=== PATIENT | male | born 1965 | race African-American/Black ===

== ENCOUNTER 2019-09-10 10:51 | Inpatient (IN) | payer OTHER ==
[2019-09-10 12:37] VITALS: BMI 26.3
--- NOTE | 2019-09-10 13:13 | HP ---
COWS - Scale Resting Pulse: 1= [place] 81-100 Sweatin= Chills/Flushing Restless Observation: 1= Difficult to Sit Still Pupil Size: 1= Pupils >than Normal Bone or Joint Aches: 4=Acute Joint/Muscle Pain Runny Nose/ Eye Tearin= Nasal Congestion GI Upset > 30mins: 0= None Tremor Observation: 1= Tremor [place], Not Seen Yawning Observation: 1= 1-2x During Session Anxiety or Irritability: 1=Feels Anxious/Irritable Goose Flesh Skin: 0=Smooth Skin COWS Score: 12 CIWA Score - Admission Criteria OASAS Guidelines: Admission for Medically Managed Detox: Requires at least one of the followin. CIWA greater than 12 2. Seizures within the past 24 hours 3. Delirium tremens within the past 24 hours 4. Hallucinations within the past 24 hours 5. Acute intervention needed for co occurring medical disorder 6. Acute intervention needed for co occurring psychiatric disorder 7. Severe withdrawal that cannot be handled at a lower level of care (continued vomiting, continued diarrhea, abnormal vital signs) requiring intravenous medication and/or fluids 8. Admission ROS [facility] Chief Complaint: " I want to stop using heroin." Allergies/Adverse Reactions: Allergies Allergy/AdvReac Type Severity Reaction Status Date / Time shellfish derived AdvReac Swelling Verified 09/10/19 12:19 History of Present Illness: 54 year old male with history of opioid dependence with withdrawal. His problem started with his self-medication due to back pain from Degenerative Disc Disease. Over time he has been using more and more oral opioids and then switched to heroin. When he can't find the oral opioids to buy on the streets he gets heroin. He is using up to 5 bags of heroin daily, approximately, last used this morning. Percocet and oxycontin he uses when he can find them. He smokes ciggarettes 5 -12 per day, since the age of [age] years old off and on. PMH: DDD, Shoulder problem unknown, asthma as a child Psurg: None Psych: None Med: None All: Shellfish He is homeless in alf system, just now got a room in a residence He has family that supports him. He was incarcerated and just released on May 22, 2019. Exam Limitations: No Limitations - Ebola screening Have you traveled outside of the country in the last 21 days: No Have you had contact with anyone from an Ebola affected area: No Have you been sick,other than usual withdrawal symptoms: No Do you have a fever: No - Review of Systems Constitutional: Chills EENT: reports: No Symptoms Reported Respiratory: reports: No Symptoms reported Cardiac: reports: No Symptoms Reported GI: reports: Nausea, Abdominal cramping : reports: No Symptoms Reported Musculoskeletal: reports: Back Pain, Joint Pain, Muscle Pain Integumentary: reports: No Symptoms Reported Neuro: reports: No Symptoms reported Endocrine: reports: No Symptoms Reported Hematology: reports: No Symptoms Reported Psychiatric: reports: Judgement Intact, Mood/Affect Appropiate, Orientated x3 Other Systems: Reviewed and Negative Patient History - Patient Medical History Hx Anemia: No Hx Asthma: Yes (as a child) Hx Chronic Obstructive Pulmonary Disease (COPD): No Hx Cancer: No Hx Cardiac Disorders: No Hx Congestive Heart Failure: No Hx Hypertension: No Hx Hypercholesterolemia: No Hx Pacemaker: No HX Cerebrovascular Accident: No Hx Seizures: No Hx Dementia: No Hx Diabetes: Yes (pre-diabetic) Hx Gastrointestinal Disorders: No Hx Liver Disease: No Hx Genitourinary Disorders: No Hx Sexually Transmitted Disorders: No Hx Renal Disease (ESRD): No Hx Thyroid Disease: No Hx Human Immunodeficiency Virus (HIV): No (last tested 2015) Hx Hepatitis C: No (last tested 2015) Hx Depression: No Hx Suicide Attempt: No Hx Bipolar Disorder: No Hx Schizophrenia: No - Patient Surgical History Past Surgical History: No - PPD History Previous Implant?: Yes Documented Results: Negative w/o proof Implanted On Prior R Admission?: Yes Date: 05/15/19 ([facility]) Results: negative PPD to be Administered?: Yes - Smoking Cessation Smoking history: Current every day smoker Have you smoked in the past 12 months: Yes Aproximately how many cigarettes per day: 10 Hx Chewing Tobacco Use: No Initiated information on smoking cessation: Yes 'Breaking Loose' booklet given: 09/10/19 - Substances abused Heroin Substance route: Inhalation Frequency: Daily Amount used: more than a bags/not sure Age of first use: 21 Date of last use: 09/09/19 Other Other (specify): Percocet Substance route: Inhalation Frequency: Daily Amount used: it depends' got it from my friends'. Age of first use: 53 Date of last use: 09/08/19 Oxycontin Substance route: Oral Frequency: 3-6 times per week Amount used: ' when I get them', Age of first use: 53 Date of last use: 09/08/[address] [facility] - Vital Signs Vital Signs: Vital Signs - 24 hr 09/10/19 09/10/19 12:18 13:01 Temperature 98.1 F 98.1 F Pulse Rate 64 64 Respiratory 16 16 Rate Blood Pressure 118/72 118/72 - Physical General Appearance: Yes: Moderate Distress HEENTM: Yes: EOMI, Hearing grossly Normal, Normal ENT Inspection, Normocephalic , Normal Voice, LUIS F, Pharynx Normal, Tm's normal Respiratory: Yes: Chest Non-Tender, Lungs Clear, Normal Breath Sounds, No Respiratory Distress, No Accessory Muscle Use Neck: Yes: No masses,lesions,Nodules, Supple, Trachea in good position Breast: Yes: Within Normal Limits Cardiology: Yes: Regular Rhythm, Regular Rate, S1, S2 Abdominal: Yes: Normal Bowel Sounds, Non Tender, Flat, Soft Genitourinary: Yes: Within Normal Limits (testicular mass above right testicle) , Other Back: Yes: Normal Inspection Musculoskeletal: Yes: full range of Motion, Gait Steady, Pelvis Stable Extremities: Yes: Normal Capillary Refill, Normal Inspection, Normal Range of Motion, Non-Tender Neurological: Yes: lead mechanical engineer II-XII NML intact, Fully Oriented, Alert, Motor Strength 5/5, Normal Mood/Affect, Normal Response Integumentary: Yes: Normal Color, Warm Lymphatic: Yes: Within Normal Limits - Diagnostic (1) Opioid dependence with withdrawal Current Visit: Yes Status: Acute (2) Disc disease, degenerative, lumbar or lumbosacral Current Visit: Yes Status: Acute (3) Asthma Current Visit: Yes Status: Acute (4) Hydrocele, right Current Visit: Yes Status: Acute Cleared for Admission [facility] - Detox or Rehab [facility] Level of Care: Medically Managed Detox Regimen/Protocol: Methadone Screened but not Admitted - Documentation of Visit Screened but not Admitted: No Breathalyzer - Breathalyzer Breathalyzer: 0 Urine Drug Screen - Test Device Lot number: [id number] Expiration date: 05/14/21 - Control Is test valid?: Yes - Results Drug screen NEGATIVE: No Urine drug screen results: MOP-Opiates Inpatient Rehab Admission - Rehab Decision to Admit Inpatient rehab admission?: No
[2019-09-10] MEDS ORDERED: BISMUTH SUBSALICYLATE 262 MG/15 ML BTL PO PRN (13:24)
[2019-09-10] MEDS ORDERED: MAGNESIUM HYDROX 2400MG/30ML ORAL SUSPENSION 30 ML CUP PO PRN (13:24)
[2019-09-10] MEDS ORDERED: cloNIDine HCL 0.1 MG TABLET PO PRN (13:24)
[2019-09-10] MEDS ORDERED: MAG HYDROX/AL HYDROX/SIMETH 30 ML UNIT-DOSE CUP PO PRN (13:24)
[2019-09-10] MEDS ORDERED: MAGNESIUM CITRATE 300 ML BOTTLE PO PRN (13:24)
[2019-09-10] MEDS ORDERED: ACETAMINOPHEN 325 MG TABLET (FP) PO PRN ×2 (13:24)
[2019-09-10] MEDS ORDERED: MENTHOL/PHENOL 1 EACH UD MM PRN (13:24)
[2019-09-10] MEDS ORDERED: IBUPROFEN 400 MG TABLET (FP) PO PRN (13:24)
[2019-09-10] MEDS ORDERED: METHADONE HCL 10 MG TABLET (FOR DETOX USE ONLY) PO ONE (14:15)
[2019-09-10 17:21] LABS: HEMATOCRIT 37.9 % (35.4-49); HEMOGLOBIN 12.6 GM/dL (11.7-16.9); MCH 32.1 pg (25.7-33.7); MCHC 33.2 g/dl (32.0-35.9); MEAN CELL VOLUME 96.8 fl (80-96); MEAN PLT VOLUME 8.5 fl (7.5-11.1); PLATELET COUNT 193 K/MM3 (134-434); RBC 3.92 M/mm3 (4.00-5.60); RDW 13.6 % (11.9-15.9); WHITE BLOOD COUNT 6.5 K/mm3 (4.0-10.0)
[2019-09-10 17:30] LABS: ALBUMIN 3.7 g/dl (3.4-5.0); BILIRUBIN,TOTAL 0.6 mg/dL (0.2-1); BLOOD UREA NITROGEN 12.1 mg/dL (7-18); CALCIUM 9.1 mg/dL (8.5-10.1); POTASSIUM 3.9 mmol/L (3.5-5.1); TOT PROT 7.1 g/dl (6.4-8.2)
[2019-09-10] MEDS: THIAMINE HCL 100 MG TABLET (FP) PO SCH (22:25)
[2019-09-10] MEDS: MELATONIN 5 MG TABLETS PO PRN (22:25)
[2019-09-11] MEDS ORDERED: METHADONE HCL 5 MG TABLET (FOR DETOX USE ONLY) ONE (09:19)
[2019-09-11] MEDS ORDERED: METHADONE HCL 10 MG TABLET (FOR DETOX USE ONLY) ONE (09:19)
[2019-09-11] MEDS ORDERED: METHADONE (DETOX) 20 MG, METHADONE (DETOX) 5 MG PO ONE (10:00)
--- NOTE | 2019-09-11 10:26 | PN ---
BHS COWS - Scale Resting Pulse: 1= [place] 81-100 Sweatin= Chills/Flushing Restless Observation: 1= Difficult to Sit Still Pupil Size: 0= Normal to Room Light Bone or Joint Aches: 1= Mild Discomfort Runny Nose/ Eye Tearin= Nasal Congestion GI Upset > 30mins: 0= None Tremor Observation of Outstretched Hands: 1= Tremor [place], Not Seen Yawning Observation: 2= >3x During Session Anxiety or Irritability: 2=Irritable/Anxious Goose Flesh Skin: 3=Piloerection COWS Score: 13 BHS Progress Note (SOAP) Subjective: sweats body aches irritable agitation interrupted sleep Objective: 09/11/19 10:26 Vital Signs Temperature 98.1 F 09/11/19 06:16 Pulse Rate 59 L 09/11/19 06:16 Respiratory Rate 16 09/11/19 06:16 Blood Pressure 99/59 L 09/11/19 06:16 O2 Sat by Pulse Oximetry (%) Laboratory Tests 09/10/19 09/10/19 14:00 14:00 WBC 6.5 RBC 3.92 L Hgb 12.6 Hct 37.9 MCV 96.8 H MCH 32.1 MCHC 33.2 RDW 13.6 Plt Count 193 MPV 8.5 Sodium 140 Potassium 3.9 Chloride 105 Carbon Dioxide 28 Anion Gap 7 L BUN 12.1 Creatinine 1.0 Est GFR (CKD-EPI)AfAm 99.15 Est GFR (CKD-EPI)NonAf 85.55 Random Glucose 103 Calcium 9.1 Total Bilirubin 0.6 AST 12 L ALT 18 Alkaline Phosphatase 51 Total Protein 7.1 Albumin 3.7 labs noted aaox3 ambulating no acute distress Assessment: 09/11/19 10:26 withdrawals Plan: continue detox increase fluids
[2019-09-11] MEDS: PRENATAL VITAMINS W/ FOLIC ACID TABLET (FP) PO SCH (10:33)
[2019-09-11] MEDS: NICOTINE 14 MG/24 HOURS TOPICAL PATCH TD SCH (10:34)
[2019-09-11] MEDS: MELATONIN 5 MG TABLETS PO PRN (22:09)
[2019-09-11] MEDS: THIAMINE HCL 100 MG TABLET (FP) PO SCH (22:09)
[2019-09-12] MEDS ORDERED: METHADONE HCL 10 MG TABLET (FOR DETOX USE ONLY) PO ONE (10:00)
[2019-09-12] MEDS: NICOTINE 14 MG/24 HOURS TOPICAL PATCH TD SCH (10:05)
[2019-09-12] MEDS: PRENATAL VITAMINS W/ FOLIC ACID TABLET (FP) PO SCH (10:05)
--- NOTE | 2019-09-12 11:21 | PN ---
BHS COWS - Scale Resting Pulse: 0= [place] 80 or Below Sweatin= Chills/Flushing Restless Observation: 1= Difficult to Sit Still Pupil Size: 0= Normal to Room Light Bone or Joint Aches: 1= Mild Discomfort Runny Nose/ Eye Tearin= Nasal Congestion GI Upset > 30mins: 0= None Tremor Observation of Outstretched Hands: 1= Tremor [place], Not Seen Yawning Observation: 1= 1-2x During Session Anxiety or Irritability: 2=Irritable/Anxious Goose Flesh Skin: 0=Smooth Skin COWS Score: 8 BHS Progress Note (SOAP) Subjective: sweats chills body aches Objective: 09/12/19 11:21 Vital Signs Temperature 97.9 F 09/12/19 09:57 Pulse Rate 62 09/12/19 09:57 Respiratory Rate 18 09/12/19 09:57 Blood Pressure 114/75 09/12/19 09:57 O2 Sat by Pulse Oximetry (%) Laboratory Tests 09/10/19 09/10/19 09/10/19 14:00 14:00 14:00 WBC 6.5 RBC 3.92 L Hgb 12.6 Hct 37.9 MCV 96.8 H MCH 32.1 MCHC 33.2 RDW 13.6 Plt Count 193 MPV 8.5 Sodium 140 Potassium 3.9 Chloride 105 Carbon Dioxide 28 Anion Gap 7 L BUN 12.1 Creatinine 1.0 Est GFR (CKD-EPI)AfAm 99.15 Est GFR (CKD-EPI)NonAf 85.55 Random Glucose 103 Calcium 9.1 Total Bilirubin 0.6 AST 12 L ALT 18 Alkaline Phosphatase 51 Total Protein 7.1 Albumin 3.7 RPR Titer Nonreactive labs noted aaox3 ambulating no acute distress Assessment: 09/12/19 11:21 withdrawal sx Plan: continue detox increase fluids
[2019-09-12] MEDS: METHOCARBAMOL 500 MG TABLET PO PRN (18:05)
[2019-09-12] MEDS: THIAMINE HCL 100 MG TABLET (FP) PO SCH (22:05)
[2019-09-12] MEDS: MELATONIN 5 MG TABLETS PO PRN (22:06)
[2019-09-12] MEDS: hydrOXYzine PAMOATE 25 MG CAPSULE (FP) PO PRN (22:06)
[2019-09-13] MEDS ORDERED: METHADONE (DETOX) 10 MG, METHADONE (DETOX) 5 MG PO ONE (10:00)
[2019-09-13] MEDS: NICOTINE 14 MG/24 HOURS TOPICAL PATCH TD SCH (10:18)
[2019-09-13] MEDS: PRENATAL VITAMINS W/ FOLIC ACID TABLET (FP) PO SCH (10:18)
[2019-09-13] MEDS ORDERED: METHADONE HCL 10 MG TABLET (FOR DETOX USE ONLY) ONE (10:19)
[2019-09-13] MEDS ORDERED: METHADONE HCL 5 MG TABLET (FOR DETOX USE ONLY) ONE (10:19)
[2019-09-13] MEDS: METHOCARBAMOL 500 MG TABLET PO PRN ×2 (10:20→22:11)
--- NOTE | 2019-09-13 14:13 | PN ---
BHS COWS - Scale Resting Pulse: 1= [place] 81-100 Sweatin= Chills/Flushing Restless Observation: 1= Difficult to Sit Still Pupil Size: 0= Normal to Room Light Bone or Joint Aches: 1= Mild Discomfort Runny Nose/ Eye Tearin= Nasal Congestion GI Upset > 30mins: 1= Stomach Cramp Tremor Observation of Outstretched Hands: 1= Tremor [place], Not Seen Yawning Observation: 0= None Anxiety or Irritability: 1=Feels Anxious/Irritable BHS Progress Note (SOAP) Subjective: pt here for detox from heroin o: Vital Signs - 24 hr 09/12/19 09/12/19 09/13/19 16:55 20:42 03:30 Temperature 98.2 F 98.1 F Pulse Rate 59 L 56 L Respiratory 18 18 18 Rate Blood Pressure 110/73 132/81 09/13/19 09/13/19 09/13/19 06:00 09:51 13:36 Temperature 98.2 F 97.3 F L 98.4 F Pulse Rate 57 L 66 62 Respiratory 18 18 18 Rate Blood Pressure 113/71 137/78 140/72 Laboratory Tests 09/10/19 09/10/19 09/10/19 14:00 14:00 14:00 WBC 6.5 RBC 3.92 L Hgb 12.6 Hct 37.9 MCV 96.8 H MCH 32.1 MCHC 33.2 RDW 13.6 Plt Count 193 MPV 8.5 Sodium 140 Potassium 3.9 Chloride 105 Carbon Dioxide 28 Anion Gap 7 L BUN 12.1 Creatinine 1.0 Est GFR (CKD-EPI)AfAm 99.15 Est GFR (CKD-EPI)NonAf 85.55 Random Glucose 103 Calcium 9.1 Total Bilirubin 0.6 AST 12 L ALT 18 Alkaline Phosphatase 51 Total Protein 7.1 Albumin 3.7 RPR Titer Nonreactive a/p OUD- continue detox protocol- d/w pt medical terminologist Rx with methadone/Bupe
[2019-09-13] MEDS: THIAMINE HCL 100 MG TABLET (FP) PO SCH (22:11)
[2019-09-13] MEDS: MELATONIN 5 MG TABLETS PO PRN (22:11)
[2019-09-14] MEDS ORDERED: METHADONE HCL 10 MG TABLET (FOR DETOX USE ONLY) PO ONE (10:00)
[2019-09-14] MEDS: NICOTINE 14 MG/24 HOURS TOPICAL PATCH TD SCH (10:19)
[2019-09-14] MEDS: METHOCARBAMOL 500 MG TABLET PO PRN ×2 (10:20→22:20)
[2019-09-14] MEDS: PRENATAL VITAMINS W/ FOLIC ACID TABLET (FP) PO SCH (10:20)
--- NOTE | 2019-09-14 12:57 | PN ---
BHS COWS - Scale Resting Pulse: 0= [place] 80 or Below Sweatin= No chills or Flushing Restless Observation: 1= Difficult to Sit Still Pupil Size: 0= Normal to Room Light Bone or Joint Aches: 0= None Runny Nose/ Eye Tearin= None GI Upset > 30mins: 0= None Tremor Observation of Outstretched Hands: 0= None Yawning Observation: 0= None Anxiety or Irritability: 1=Feels Anxious/Irritable Goose Flesh Skin: 0=Smooth Skin COWS Score: 2 BHS Progress Note (SOAP) Subjective: feeling better little anxiety Objective: 09/14/19 12:56 Vital Signs Temperature 98.2 F 09/14/19 09:55 Pulse Rate 69 09/14/19 09:55 Respiratory Rate 16 09/14/19 09:55 Blood Pressure 130/85 09/14/19 09:55 O2 Sat by Pulse Oximetry (%) aaox3 ambulating no acute distress Assessment: 09/14/19 12:57 mild withdrawals Plan: continue detox d/c in am
[2019-09-14 21:35] VITALS: PULSE 55
[2019-09-14] MEDS: THIAMINE HCL 100 MG TABLET (FP) PO SCH (22:20)
[2019-09-14] MEDS: MELATONIN 5 MG TABLETS PO PRN (22:20)
[2019-09-14] MEDS: hydrOXYzine PAMOATE 25 MG CAPSULE (FP) PO PRN (22:21)
[2019-09-15] MEDS ORDERED: METHADONE HCL 5 MG TABLET (FOR DETOX USE ONLY) PO ONE (06:00)
[2019-09-15 06:06] VITALS: BP 113/63; TEMP 98.2
--- NOTE | 2019-09-15 09:51 | DS ---
[facility] Detox Discharge Summary Admission Date: 09/10/19 Discharge Date: 09/15/19 - History Present History: Opioid Dependence - Physical Exam Results Vital Signs: Vital Signs Temperature 98.2 F 09/15/19 06:00 Pulse Rate 55 L 09/15/19 06:00 Respiratory Rate 18 09/15/19 06:00 Blood Pressure 113/63 09/15/19 06:00 O2 Sat by Pulse Oximetry (%) Pertinent Admission Physical Exam Findings: pt arrived in withdrawals Vital Signs Temperature 98.2 F 09/15/19 06:00 Pulse Rate 55 L 09/15/19 06:00 Respiratory Rate 18 09/15/19 06:00 Blood Pressure 113/63 09/15/19 06:00 O2 Sat by Pulse Oximetry (%) Laboratory Tests 09/10/19 09/10/19 09/10/19 14:00 14:00 14:00 WBC 6.5 RBC 3.92 L Hgb 12.6 Hct 37.9 MCV 96.8 H MCH 32.1 MCHC 33.2 RDW 13.6 Plt Count 193 MPV 8.5 Sodium 140 Potassium 3.9 Chloride 105 Carbon Dioxide 28 Anion Gap 7 L BUN 12.1 Creatinine 1.0 Est GFR (CKD-EPI)AfAm 99.15 Est GFR (CKD-EPI)NonAf 85.55 Random Glucose 103 Calcium 9.1 Total Bilirubin 0.6 AST 12 L ALT 18 Alkaline Phosphatase 51 Total Protein 7.1 Albumin 3.7 RPR Titer Nonreactive today pt is aaox3 ambulating no s/s of withdrawals - Treatment Hospital Course: Detox Protocol Followed, Detoxed Safely, Responded well, Discharged Condition Good, Rehab Referral Accepted Patient has Accepted a Rehab Referral to: pt declined rehab; referral provided - Medication Discharge Medications: Ambulatory Orders NK [No Known Home Medication] 09/10/19 - Diagnosis (1) Asthma Current Visit: Yes Status: Chronic Qualifiers: Asthma severity: mild Asthma persistence: unspecified Asthma complication type: unspecified Qualified Code(s): J45.909 - Unspecified asthma , uncomplicated (2) Disc disease, degenerative, lumbar or lumbosacral Current Visit: Yes Status: Acute (3) Hydrocele, right Current Visit: Yes Status: Acute (4) Opioid dependence with withdrawal Current Visit: Yes Status: Chronic - AMA Did Patient Leave Against Medical Advice: No
== END 2019-09-15 09:05 | disposition home or self-care (01) | DRG 773 ==
LOC: YASAS 10:51 → Y6N 14:10
PROVIDERS: ADMIT Allergy & Immunology; ATTEND Allergy & Immunology
PROC: HZ2ZZZZ Detoxification Services for Substance Abuse Treatment (ICD-10-PCS; principal; 2019-09-10)
DX: F11.23 Opioid dependence with withdrawal (principal); F17.210 Nicotine dependence, cigarettes, uncomplicated; J45.909 Unspecified asthma, uncomplicated; M51.37 Other intervertebral disc degeneration, lumbosacral region; N43.3 Hydrocele, unspecified; R73.03 Prediabetes; Z91.018 Allergy to other foods
CPT/HCPCS: 36415; 80053; 85027; 86593